=== PATIENT | female | born 1955 | race Caucasian/White ===

== ENCOUNTER 2017-06-20 10:13 | Emergency (ER) | payer OTHER ==
[~2017-06-20] VITALS: Ht 154.9 cm; Wt 63.4 kg
[~2017-06-20 10:13] MED LIST: NORCO 5/3251 TABLET PO; VALTREX1000 MG PO
[2017-06-20 13:15] VITALS: BP 131/102
[2017-06-20] MEDS ORDERED: NORCO 5/3251 TABLET PO (13:28)
== END 2017-06-20 13:37 | disposition home or self-care (01) ==
LOC: EME 10:13
DX: S42.301A Unspecified fracture of shaft of humerus, right arm, initial encounter for closed fracture (principal); W18.30XA Fall on same level, unspecified, initial encounter; I10 Essential (primary) hypertension
CPT/HCPCS: 73030; 99281; 99284